=== PATIENT | female | born 1980 | race Caucasian/White ===

== ENCOUNTER 2017-07-23 08:33 | Emergency (ER) | payer OTHER ==
[~2017-07-23] VITALS: Ht 162.6 cm; Wt 132.9 kg
[~2017-07-23 08:33] MED LIST: ALBUAER19 INH; CYM/30 PO; LEVO100T7 PO; MOME220A INH; MTR600X PO; MULT-506 PO; OXYC5TAB PO; PRAZ1CAP28 PO; TOPI25TA99 PO; Vitamin D-3
[2017-07-23 08:54] VITALS: TEMP 36.9; Ht 162.6 cm; Wt 132.9 kg
--- NOTE | 2017-07-23 09:31 | DIAGNOSTIC IMAGING REPORT ---
RIGHT KNEE 3 VIEWS CLINICAL HISTORY: Fall with right knee pain. FINDINGS: AP, crosstable lateral, and sunrise views of the right knee are obtained. No prior studies are available for comparison at the time of dictation. The skeletal structures are well mineralized. No fracture is seen. There is mild narrowing at the patellofemoral articulation. The lateral and medial compartments are preserved. There is no joint effusion. Degenerative beaking is noted in the tibial spine. Mild prepatellar soft tissue swelling is observed. IMPRESSION: Mild prepatellar soft tissue swelling with no radiographic evidence of right knee fracture. Electronically signed by: Asa Jiang M.D. 07/23/2017 9:30 AM Dictated Date/Time: 07/23/2017 9:26 AM
[2017-07-23] MEDS ORDERED: MOME1AER5 INH (09:32)
[2017-07-23] MEDS ORDERED: SYN125 PO (09:32)
[2017-07-23] MEDS ORDERED: CHOL100010 PO (09:32)
[2017-07-23] MEDS ORDERED: TOPI100T20 PO (09:32)
[2017-07-23] MEDS ORDERED: VNTHFA/IN INH (09:32)
[2017-07-23 10:35] VITALS: BP 127/83; PULSE 63; O2SAT 96
[2017-07-23] MEDS ORDERED: FURO-85 PO (12:59)
[2017-07-23] MEDS ORDERED: LORA0.5T12 PO (12:59)
[2017-07-23] MEDS ORDERED: MONT1TAB5 PO (12:59)
[2017-07-23] MEDS ORDERED: DULO60CA44 PO (12:59)
[2017-07-23] MEDS ORDERED: LOSA1TAB PO (12:59)
--- NOTE | 2017-07-23 15:25 | EMERGENCY ROOM VISIT NOTE ---
ED Visit Note First contact with patient: 08:56 CHIEF COMPLAINT: knee pain HISTORY OF PRESENT ILLNESS: This 37-year-old female patient presents to the emergency department after sustaining an injury to the right knee after falling 2 days ago. The patient states that she had a mechanical fall and landed onto her knee. The patient denies any other injuries besides their knee. The patient has had swelling and mild bruising. There is pain over the patella. They rate the pain as sharp and 7/10. The patient states they are able to walk on it. No numbness or tingling. No previous injuries to this knee. No ankle, foot or hip pain. REVIEW OF SYSTEMS: A 6 system review of systems was completed with positives and pertinent negatives listed in the HPI. ALLERGIES: No known allergies MEDICATIONS: See EMR PMH: No pertinent chronic medical disease SOCIAL HISTORY: Lives at home with family PHYSICAL EXAM: Vital Signs: Reviewed Nurse's notes, vital signs stable. GENERAL : White female, no acute distress, but appears in pain, well-developed, well- nourished. MENTAL STATUS: Alert, oriented to person place and time, and cooperative. MUSCULOSKELETAL: The right knee is mildly swollen. There is no ecchymosis. There is no joint effusion present. The patient is tender across the patella. There is no joint line tenderness. The patella does not subluxate. Range of motion is normal. Strength of the quads and hamstrings is 4/5. Jean' s is negative. Mikie's and Anterior Drawer tests are negative. There is no laxity with varus and valgus stressing. The foot and toes are warm and well- perfused. Dorsalis pedis pulse 2+. Sensation to pain and light touch is intact. Capillary refill less than 2 seconds. RIGHT KNEE 3 VIEWS CLINICAL HISTORY: Fall with right knee pain. FINDINGS: AP, crosstable lateral, and sunrise views of the right knee are obtained. No prior studies are available for comparison at the time of dictation. The skeletal structures are well mineralized. No fracture is seen. There is mild narrowing at the patellofemoral articulation. The lateral and medial compartments are preserved. There is no joint effusion. Degenerative beaking is noted in the tibial spine. Mild prepatellar soft tissue swelling is observed. IMPRESSION: Mild prepatellar soft tissue swelling with no radiographic evidence of right knee fracture. EMERGENCY DEPARTMENT COURSE: Physical exam and history were performed. Nursing notes and EMR were reviewed. The patient appears to have suffered injury to her right knee after falling 2 days ago. On exam she does have some tenderness across the front of the patella. X-ray was obtained and does not show evidence of acute fracture or dislocation. Evidently the patient has crutches at home that she will be instructed to use. I will give her an Audie wrap and instructions for conservative care. She is followed with orthopedics with any ongoing or persistent symptoms. She was otherwise invited back to the ER and was pleased with plan of care. Problem List Medical Problems: (1) Asthma Status: Chronic (2) Non-cardiac chest pain Status: Resolved (3) Non-cardiac chest pain Status: Resolved (4) Seasonal allergies Status: Chronic (5) Torticollis Status: Chronic Surgical Problems: (1) History of section Status: Resolved Current/Historical Medications Scheduled Albuterol Hfa (Ventolin Hfa), 2-4 PUFFS INH Q6H Cholecalciferol (Vitamin D), 5,000 UNITS PO DAILY Duloxetine Hcl (Cymbalta), 120 MG PO QAM Furosemide (Lasix), 20 MG PO BID Levothyroxine Sodium (Synthroid), 125 MCG PO DAILY Losartan Potassium (Cozaar), 25 MG PO QAM Mometasone Furoate (Inhalation (Asmanex Hfa), 1 PUFF INH BID Montelukast Sodium (Montelukast Sodium), 1 TAB PO QAM Topiramate (Topamax), 100 MG PO BID Scheduled PRN Lorazepam (Lorazepam), 1-1.5 TAB PO DAILY PRN for Anxiety/Agitation Allergies Coded Allergies: No Known Allergies (Unverified , 02/29/16) Vital Signs Date Time Temp Pulse Resp B/P (MAP) Pulse Ox O2 Delivery O2 Flow Rate FiO2 07/23/17 10:35 63 20 127/83 96 07/23/17 08:54 36.9 74 17 143/100 99 Room Air Departure Information Impression Primary Impression: Injury of right knee Dispostion Home / Self-Care Condition GOOD Referrals Miguel A Estrada MD Forms HOME CARE DOCUMENTATION FORM, IMPORTANT VISIT INFORMATION Patient Instructions My [facility] Additional Instructions You were seen and evaluated today on an emergency basis only. This is not a substitute for, or an effort to provide, complete comprehensive medical care. It is not possible to recognize and treat all injuries or illnesses in a single emergency department visit. For this reason it is recommended that you followup with orthopedics, Dr. Estrada's office, if symptoms persist over the next 1-2 weeks. For baseline pain relief you may alternate ibuprofen and acetaminophen every 4 hours for pain control. Take 600 mg ibuprofen (Advil) and then 4 hours later take 1000 mg acetaminophen (Tylenol). Do not take more than 3000 mg acetaminophen in a single day. Use your crutches from home for the next 4-5 days and advance activity as tolerated. You are welcome to return to the emergency department anytime with new, worsening, or concerning symptoms.
== END 2017-07-23 10:35 | disposition home or self-care (01) ==
LOC: C.EDB 08:35
DX: S89.91XA Unspecified injury of right lower leg, initial encounter (principal); W19.XXXA Unspecified fall, initial encounter; Z79.51 Long term (current) use of inhaled steroids; J45.909 Unspecified asthma, uncomplicated

== ENCOUNTER 2017-08-17 17:55 | Emergency (ER) | payer OTHER ==
[~2017-08-17] VITALS: Ht 162.6 cm; Wt 132.0 kg
[~2017-08-17 17:55] MED LIST changes: -ALBUAER19 INH; +CHOL100010 PO; -CYM/30 PO; +DULO60CA44 PO; +FURO-85 PO; -LEVO100T7 PO; +LORA0.5T12 PO; +LOSA1TAB PO; +MOME1AER5 INH; -MOME220A INH; +MONT1TAB5 PO; -MTR600X PO; -MULT-506 PO; -OXYC5TAB PO; -PRAZ1CAP28 PO; +SYN125 PO; +TOPI100T20 PO; -TOPI25TA99 PO; +VNTHFA/IN INH; -Vitamin D-3
[2017-08-17 18:02] VITALS: Ht 162.6 cm; Wt 132.0 kg
--- NOTE | 2017-08-17 18:20 | EMERGENCY ROOM VISIT NOTE ---
History Report prepared by Nestor: Pedro Spicer Under the Supervision of: Dr. Kylee Pastor D.O. First contact with patient: 18:18 Chief Complaint: NECK PAIN Stated Complaint: STIFF NECK,NECK PAIN,HEADACHE History of Present Illness The patient is a 37 year old female who presents to the Emergency Room with complaints of a persistent headache that started yesterday morning upon waking. She says that she first started with a headache that morning, and then she started having a stiff neck with some neck pain as well. She states that her pain got worse as the day went on, and her head pain comes from behind and comes up over her head. The patient notes that she has been getting dizzy and lightheaded upon standing starting yesterday. The patient states that her pain does not change with position. She says that she did not "sleep funny" the night before the pain came on, and she has never had anything like this before. No vision changes, no tinnitus. The patient notes no history of headaches like this. She denies any nausea, vomiting, shoulder pain, or recent cold symptoms. She states that she feels like she has been getting hot but she did not take her temperature. The patient notes that she has been around a lot of sick people at work. She denies any recent changes in her activity level. The patient adds that she had an MRI of her cervical spine in [place] last month , which was normal but revealed some mild disc bulges. The patient notes that she took Ibuprofen yesterday with no relief. Source of History: patient Onset: Upon waking yesterday morning Position: head Quality: ache Timing: other (persistent) Associated Symptoms: + neck pain (and stiff neck), No nausea, No vomiting Note: Associated symptoms: Dizzy, lightheaded upon standing. Denies shoulder pain or recent cold symptoms. Review of Systems See HPI for pertinent positives & negatives. A total of 10 systems reviewed and were otherwise negative. Past Medical & Surgical Medical Problems: (1) Asthma (2) Menorrhagia (3) Non-cardiac chest pain (4) Non-cardiac chest pain (5) Seasonal allergies (6) Torticollis Surgical Problems: (1) History of section Family History FHx: cancer FHx: diabetes FHx: gallbladder disease FHx: heart disease FHx: hypertension FHx: kidney disease/stones FHx: lung disease Social History Smoking Status: Never Smoker Alcohol Use: none Drug Use: none Housing Status: lives with family Occupation Status: employed Current/Historical Medications Scheduled Albuterol Hfa (Ventolin Hfa), 2 PUFFS INH Q6H Cholecalciferol (Vitamin D), 5,000 UNITS PO DAILY Duloxetine Hcl (Cymbalta), 120 MG PO QAM Furosemide (Lasix), 20 MG PO BID Levothyroxine Sodium (Synthroid), 125 MCG PO DAILY Losartan Potassium (Cozaar), 25 MG PO QAM Mometasone Furoate (Inhalation (Asmanex Hfa), 1 PUFF INH BID Montelukast Sodium (Montelukast Sodium), 1 TAB PO QAM Topiramate (Topamax), 100 MG PO BID Scheduled PRN Ibuprofen (Advil), 400 MG PO Q6 PRN for Pain Lorazepam (Lorazepam), 1-1.5 TAB PO DAILY PRN for Anxiety/Agitation Allergies Coded Allergies: No Known Allergies (Unverified , 02/29/16) Physical Exam Vital Signs Date Time Temp Pulse Resp B/P (MAP) Pulse Ox O2 Delivery O2 Flow Rate FiO2 08/17/17 22:23 61 18 128/70 98 Room Air 08/17/17 21:30 72 20 123/94 99 Room Air 08/17/17 19:58 36.9 75 16 135/95 95 Room Air 08/17/17 18:02 37.5 74 20 136/93 98 Room Air Physical Exam GENERAL: alert, well appearing, well nourished, no distress, non-toxic, obese HEAD: no sinus tenderness to percussion, no mastoid tenderness no percussion EYE EXAM: normal conjunctiva, PERRL and EOM's grossly intact OROPHARYNX: no exudate, no erythema, lips, buccal mucosa, and tongue normal and mucous membranes are moist NECK: supple, no nuchal rigidity, no adenopathy, non-tender LUNGS: Clear to auscultation. Normal chest wall mechanics, no w/r/r HEART: no murmurs, S1 normal and S2 normal ABDOMEN: abdomen soft, non-tender, normo-active bowel sounds, no masses, no rebound or guarding. BACK: Back is symmetrical on inspection and there is no deformity, no midline tenderness, no CVA tenderness. SKIN: no rashes and no bruising UPPER EXTREMITIES: upper extremities are grossly normal. Nml pulses, nml ROM. LOWER EXTREMITIES: No pitting edema. Nml pulses, nml ROM. NEURO EXAM: Normal sensorium, cranial nerves II-XII grossly intact, normal speech, no gross weakness of arms, no gross weakness of legs, no facial droop, no ataxia, nml gait Medical Decision & Procedures ER Provider Diagnostic Interpretation: CT results have been interpreted by the radiologist and reviewed by me. HEAD WITHOUT CONTRAST (CT) CLINICAL HISTORY: 37 years-old Female presenting with atypical headache. TECHNIQUE: Multidetector CT imaging of the head was performed without the use of intravenous contrast. IV contrast: None. A dose lowering technique was used consistent with the principles of ALARA (as low as reasonably achievable). COMPARISON: 07/29/2015. CT DOSE (mGy.cm): The estimated cumulative dose is 638.56 mGycm. FINDINGS: Customer Resolution Specialist topogram: Unremarkable. Ventricles and sulci normal in size. Brain parenchyma normal in appearance with preserved patel-white differentiation. No mass effect or midline shift. No hemorrhage or acute territorial infarct. No extra-axial fluid collection. Paranasal sinuses and mastoid air cells clear. Calvarium intact. IMPRESSION: 1. No acute intracranial pathology. Electronically signed by: Miguel A Reynolds M.D. 08/17/2017 7:29 PM Dictated Date/Time: 08/17/2017 7:26 PM Medications Administered Medications (Trade) Dose Ordered Sig/Nickie Route Start Time Stop Time Status Last Admin Dose Admin Cyclobenzaprine HCl (Flexeril Tab) 10 mg NOW STAT PO 08/17/17 18:40 08/17/17 18:42 DC 08/17/17 18:58 10 MG Ketorolac Tromethamine (Toradol Inj) 60 mg NOW STAT IM 08/17/17 18:40 08/17/17 18:42 DC 08/17/17 18:59 60 MG Acetaminophen/ Butalbital/ Caffeine (Fioricet Tab) 1 tab NOW STAT PO 08/17/17 20:14 08/17/17 20:15 DC 08/17/17 20:31 1 TAB ED Course 1831: The patient was evaluated in room A12B. A complete history and physical exam was performed. 1839: Ordered Toradol Inj 60 mg IM, Flexeril Tab 10 mg PO. 2012: I reevaluated the patient and her headache is slightly better but is still there. 2013: Ordered Fioricet Tab 1 tab PO. 2058: I reevaluated the patient and her pain is better but still there. 2211: Upon reevaluation, the patient is feeling better. I discussed the findings and the treatment plan with the patient. She verbalizes agreement and understanding. She was discharged home. Medical Decision Differential diagnosis: Etiologies such as migraine headache, meningitis, sinusitis, CO exposure, ICH, SAH, infection, tumor, headache, sinus thrombosis, arterial dissection, as well as others were entertained. Pt headache posterior and coming up over head with pain in neck also, no other migrainous symptoms, description not thunderclap and non exertional - doubt SAH. No focal neuro deficits, doubt cva. Most likely tension headache. No fevers or other sx of URI. Did not feel pt presentation was consisted with meningitis and warranted LP - this was discussed with pt and she agreed. Less likely NPH given hx and age. Doubt cvs thrombus or dissection. Medication Reconcilliation Current Medication List: was personally reviewed by me Blood Pressure Screening Patient's blood pressure: Elevated blood pressure Blood pressure disposition: Elevated BP felt to be situational Impression Primary Impression: Headache Scribe Attestation The scribe's documentation has been prepared under my direction and personally reviewed by me in its entirety. I confirm that the note above accurately reflects all work, treatment, procedures, and medical decision making performed by me. Departure Information Dispostion Home / Self-Care Referrals Santi Eubanks M.D. (PCP) Patient Instructions My [facility] Additional Instructions Please rest and drink plenty of fluids to stay well-hydrated. Please follow up with your family doctor regarding the atypical headache you experienced. If you develop recurrent or worsening headache, dizziness, vision changes, fevers, vomiting, numbness or tingling, or you have any other new concerns, please return the emergency room. Problem Qualifiers Primary Impression: Headache Headache type: unspecified Headache chronicity pattern: acute headache Intractability: not intractable Qualified Codes: R51 - Headache
[2017-08-17] MEDS ORDERED: KETOROLAC TROMETHAMINE 60 MG/2 ML VIAL IM STA (18:40)
[2017-08-17] MEDS ORDERED: CYCLOBENZAPRINE HCL 5 MG TAB PO STA (18:40)
[2017-08-17] MEDS ORDERED: IBUP-1050 PO (19:02)
--- NOTE | 2017-08-17 19:31 | DIAGNOSTIC IMAGING REPORT ---
HEAD WITHOUT CONTRAST (CT) CLINICAL HISTORY: 37 years-old Female presenting with atypical headache. TECHNIQUE: Multidetector CT imaging of the head was performed without the use of intravenous contrast. IV contrast: None. A dose lowering technique was used consistent with the principles of ALARA (as low as reasonably achievable). COMPARISON: 07/29/2015. CT DOSE (mGy.cm): The estimated cumulative dose is 638.56 mGycm. FINDINGS: Rfid Systems Engineer topogram: Unremarkable. Ventricles and sulci normal in size. Brain parenchyma normal in appearance with preserved patel-white differentiation. No mass effect or midline shift. No hemorrhage or acute territorial infarct. No extra-axial fluid collection. Paranasal sinuses and mastoid air cells clear. Calvarium intact. IMPRESSION: 1. No acute intracranial pathology. Electronically signed by: Miguel A Reynolds M.D. 08/17/2017 7:29 PM Dictated Date/Time: 08/17/2017 7:26 PM
[2017-08-17 19:58] VITALS: TEMP 36.9
[2017-08-17] MEDS ORDERED: BUTALBITAL/ACETAMIN/CAFFEINE TAB PO STA (20:14)
[2017-08-17 22:23] VITALS: BP 128/70; PULSE 61; O2SAT 98
== END 2017-08-17 22:33 | disposition home or self-care (01) ==
LOC: C.EDB 17:57 → C.EDA 22:33
DX: R51 Headache (principal); J45.909 Unspecified asthma, uncomplicated; Z79.899 Other long term (current) drug therapy; Z80.9 Family history of malignant neoplasm, unspecified; Z83.3 Family history of diabetes mellitus; Z83.79 Family history of other diseases of the digestive system; Z82.49 Family history of ischemic heart disease and other diseases of the circulatory system; Z84.1 Family history of disorders of kidney and ureter

== ENCOUNTER 2018-01-23 17:09 | Emergency (ER) | payer OTHER ==
[~2018-01-23] VITALS: Ht 162.6 cm; Wt 132.1 kg
[~2018-01-23 17:09] MED LIST changes: +IBUP-1050 PO
[2018-01-23 17:16] VITALS: TEMP 37.5; Ht 162.6 cm; Wt 132.1 kg
[2018-01-23] MEDS ORDERED: KETOROLAC TROMETHAMINE 30 MG/ML VIAL IV STA (18:24)
[2018-01-23] MEDS ORDERED: SODIUM CHLORIDE 0.9% 1000ML 1,000 ML IV STA (18:24)
[2018-01-23 18:45] LABS: BASO % 0.3 %; BASO ABS # 0.03 K/uL (0-0.2); EOS % 1.4 %; EOS ABS # 0.15 K/uL (0-0.5); HEMATOCRIT 39.5 % (37-47); HEMOGLOBIN 13.4 g/dL (12.0-16.0); IG# 0.03 K/uL (0.00-0.02); LYMPH % 24.4 %; LYMPH ABS # 2.65 K/uL (1.2-3.4); MEAN CELL VOLUME 90.4 fL (80-100); MEAN CORPUSCULAR HEMOGLOBIN 30.7 pg (25-34); MEAN CORPUSCULAR HGB CONC 33.9 g/dl (32-36); MEAN PLATELET VOLUME 10.6 fL (7.4-10.4); MONO % 8.5 %; MONO ABS # 0.92 K/uL (0.11-0.59); NEUT % 65.1 %; NEUT ABS # 7.06 K/uL (1.4-6.5); PLATELET COUNT 248 K/uL (130-400); RED CELL DISTRIBUTION WIDTH CV 13.2 % (11.5-14.5); RED CELL DISTRIBUTION WIDTH SD 43.8 fL (36.4-46.3); WHITE BLOOD COUNT 10.84 K/uL (4.8-10.8)
--- NOTE | 2018-01-23 18:51 | DIAGNOSTIC IMAGING REPORT ---
CHEST ONE VIEW PORTABLE CLINICAL HISTORY: 37 years-old Female presenting with Chest Pain. TECHNIQUE: Portable upright AP view of the chest was obtained. COMPARISON: 11/22/2015. FINDINGS: Right aortic arch. Normal cardiac silhouette. Lungs and pleural spaces clear. Osseous structures normal. Upper abdomen normal. IMPRESSION: 1. No acute cardiopulmonary disease. 2. Right aortic arch. Electronically signed by: Miguel A Reynolds M.D. 01/23/2018 6:49 PM Dictated Date/Time: 01/23/2018 6:48 PM
[2018-01-23 19:03] LABS: BLOOD UREA NITROGEN 8 mg/dl (7-18); CALCIUM 8.8 mg/dl (8.5-10.1); CARBON DIOXIDE 28 mmol/L (21-32); CREATININE 0.72 mg/dl (0.60-1.20); GLUCOSE 82 mg/dl (70-99); POTASSIUM 3.5 mmol/L (3.5-5.1); SODIUM 139 mmol/L (136-145)
[2018-01-23 19:07] LABS: CKMB < 0.5 ng/ml (0.5-3.6)
[2018-01-23] MEDS ORDERED: BUSP15TA70 PO (19:15)
[2018-01-23] MEDS ORDERED: CHOLCAP5 PO (19:15)
[2018-01-23] MEDS ORDERED: GLC/500 PO (19:15)
[2018-01-23] MEDS ORDERED: TOPI50TA24 PO (19:15)
[2018-01-23] MEDS ORDERED: GI COCKTAIL PO STA (20:30)
[2018-01-23] MEDS ORDERED: ALUMINUM/MAGNESIUM SUSP 30 ML UDC ONE (20:45)
[2018-01-23] MEDS ORDERED: LIDOCAINE HCL 2% VISC SOLN 20 ML UDC ONE (20:45)
[2018-01-23 22:07] VITALS: BP 150/98; PULSE 75; O2SAT 96
--- NOTE | 2018-01-24 00:09 | EMERGENCY ROOM VISIT NOTE ---
History Report prepared by Nestor: Jacquie Rodriguez Under the Supervision of: Dr. Ryan Carter D.O. First contact with patient: 18:15 Chief Complaint: CARDIAC ASSESSMENT Stated Complaint: HEAVY CHEST, DIZZY SPELLS, ELEVATED BP Nursing Triage Summary: Pt states, "My chest is heavy and I have been having dizzy spells. I get real hot and my bp was high." Sx began a couple days ago with dizziness. Other sx began today approx 1300. History of Present Illness The patient is a 37 year old female who presents to the Emergency Room with complaints of constant chest heaviness starting 1300 today. She has never had this before. She currently rates her discomfort as a 6/10 in severity. The pain goes across the top of her chest. She was sitting when it started. She does not identify anything that makes the pain better or worse. She had an episode of dizziness where the room was spinning and she felt hot and clammy. The dizziness has improved. She denies any arm pain, jaw pain, chest pain, or SOB with exertion. She has swelling in her feet which is not new. She denies any history of asthma, COPD, aorta problems, Zahra Danlos, or Marfan's. She does not exercise regularly. Patient denies swelling of calves, recent trips, history of immobilization or recent surgery, prior history of DVT, hemoptysis, history of malignancy, history of smoking, or control/estrogen use. Patient denies diabetes, hyperlipidemia, CAD, history of sudden at a young age, and smoking. She has a history of hypertension. Her sister of kidney failure at 30. Source of History: patient Onset: 1300 Position: chest Symptom Intensity: 6/10 Quality: other (heaviness) Timing: constant Associated Symptoms: No chest pain, No SOB Note: Pt reports dizziness. Review of Systems See HPI for pertinent positives & negatives. A total of 10 systems reviewed and were otherwise negative. Past Medical & Surgical Medical Problems: (1) Asthma (2) Menorrhagia (3) Non-cardiac chest pain (4) Non-cardiac chest pain (5) Seasonal allergies (6) Torticollis Surgical Problems: (1) History of section Family History FHx: cancer FHx: diabetes FHx: gallbladder disease FHx: heart disease FHx: hypertension FHx: kidney disease/stones FHx: lung disease Social History Smoking Status: Never Smoker Alcohol Use: none Drug Use: none Housing Status: lives with family Occupation Status: employed Current/Historical Medications Scheduled Buspirone Hcl (Buspar), 15 MG PO BID Cholecalciferol (Vitamin D3), 5,000 INTER.UNIT PO DAILY Duloxetine Hcl (Cymbalta), 120 MG PO QAM Levothyroxine Sodium (Synthroid), 125 MCG PO DAILY Losartan Potassium (Cozaar), 25 MG PO QAM Metformin Hcl (Glucophage), 500 MG PO BID Topiramate (Topamax), 50 MG PO HS Scheduled PRN Lorazepam (Lorazepam), 0.5-0.75 MG PO DAILY PRN for Anxiety/Agitation Allergies Coded Allergies: No Known Allergies (Unverified , 02/29/16) Physical Exam Vital Signs Date Time Temp Pulse Resp B/P (MAP) Pulse Ox O2 Delivery O2 Flow Rate FiO2 01/23/18 22:07 75 16 150/98 96 01/23/18 22:03 75 16 150/98 96 Room Air 01/23/18 21:02 75 16 154/100 96 Room Air 01/23/18 18:41 83 01/23/18 18:41 84 16 150/109 97 Room Air 01/23/18 17:16 37.5 118 18 158/103 99 Room Air Physical Exam GENERAL: Sitting up in bed, alert, well appearing, well nourished, no distress, non-toxic EYE EXAM: normal conjunctiva. PERRL and EOM's grossly intact. OROPHARYNX: no exudate, no erythema, lips, buccal mucosa, and tongue normal and mucous membranes are moist NECK: supple, no nuchal rigidity, no adenopathy, non-tender LUNGS: Clear to auscultation. Normal chest wall mechanics HEART: no murmurs, S1 normal and S2 normal ABDOMEN: abdomen soft, non-tender, normo-active bowel sounds, no masses, no rebound or guarding. BACK: Back is symmetrical on inspection and there is no deformity, no midline tenderness, no CVA tenderness. SKIN: no rashes and no bruising UPPER EXTREMITIES: upper extremities are grossly normal. LOWER EXTREMITIES: No pitting edema. NEURO EXAM: Normal sensorium, cranial nerves II-XII intact, normal speech, no weakness of arms, no weakness of legs. No drift. Finger to nose intact. Gross sensation intact. Medical Decision & Procedures ER Provider Diagnostic Interpretation: Radiology results as stated below per my review and the radiologist's interpretation: CHEST ONE VIEW PORTABLE CLINICAL HISTORY: 37 years-old Female presenting with Chest Pain. TECHNIQUE: Portable upright AP view of the chest was obtained. COMPARISON: 11/22/2015. FINDINGS: Right aortic arch. Normal cardiac silhouette. Lungs and pleural spaces clear. Osseous structures normal. Upper abdomen normal. IMPRESSION: 1. No acute cardiopulmonary disease. 2. Right aortic arch. Electronically signed by: Miguel A Reynolds M.D. 01/23/2018 6:49 PM Dictated Date/Time: 01/23/2018 6:48 PM Laboratory Results 01/23/18 18:30 Red Blood Count 4.37, Mean Corpuscular Volume 90.4, Mean Corpuscular Hemoglobin 30.7, Mean Corpuscular Hemoglobin Concent 33.9, Mean Platelet Volume 10.6, Neutrophils (%) (Auto) 65.1, Lymphocytes (%) (Auto) 24.4, Monocytes (%) (Auto) 8.5, Eosinophils (%) (Auto) 1.4, Basophils (%) (Auto) 0.3, Neutrophils # (Auto) 7.06, Lymphocytes # (Auto) 2.65, Monocytes # (Auto) 0.92, Eosinophils # (Auto) 0.15, Basophils # (Auto) 0.03 01/23/18 18:30 Test 01/23/18 18:30 01/23/18 20:31 White Blood Count 10.84 K/uL (4.8-10.8) Red Blood Count 4.37 M/uL (4.2-5.4) Hemoglobin 13.4 g/dL (12.0-16.0) Hematocrit 39.5 % (37-47) Mean Corpuscular Volume 90.4 fL (80-100) Mean Corpuscular Hemoglobin 30.7 pg (25-34) Mean Corpuscular Hemoglobin Concent 33.9 g/dl (32-36) Platelet Count 248 K/uL (130-400) Mean Platelet Volume 10.6 fL (7.4-10.4) Neutrophils (%) (Auto) 65.1 % Lymphocytes (%) (Auto) 24.4 % Monocytes (%) (Auto) 8.5 % Eosinophils (%) (Auto) 1.4 % Basophils (%) (Auto) 0.3 % Neutrophils # (Auto) 7.06 K/uL (1.4-6.5) Lymphocytes # (Auto) 2.65 K/uL (1.2-3.4) Monocytes # (Auto) 0.92 K/uL (0.11-0.59) Eosinophils # (Auto) 0.15 K/uL (0-0.5) Basophils # (Auto) 0.03 K/uL (0-0.2) RDW Standard Deviation 43.8 fL (36.4-46.3) RDW Coefficient of Variation 13.2 % (11.5-14.5) Immature Granulocyte % (Auto) 0.3 % Immature Granulocyte # (Auto) 0.03 K/uL (0.00-0.02) D-Dimer 310 ug/L FEU (0-500) Anion Gap 4.0 mmol/L (3-11) Est Creatinine Clear Calc Drug Dose 146.1 ml/min Estimated GFR () 124.9 Estimated GFR (Non- 107.7 BUN/Creatinine Ratio 10.8 (10-20) Calcium Level 8.8 mg/dl (8.5-10.1) Total Creatine Kinase 38 U/L (26-192) Creatine Kinase MB < 0.5 ng/ml (0.5-3.6) Creatine Kinase MB Ratio (0-3.0) Troponin I < 0.015 ng/ml (0-0.045) Laboratory results per my review. Medications Administered Medications (Trade) Dose Ordered Sig/Nickie Route Start Time Stop Time Status Last Admin Dose Admin Sodium Chloride 1,000 ml @ 999 mls/hr Q1H1M STAT IV 01/23/18 18:24 01/23/18 19:24 DC 01/23/18 18:38 999 MLS/HR Ketorolac Tromethamine (Toradol Inj) 30 mg NOW STAT IV 01/23/18 18:24 01/23/18 18:25 DC 01/23/18 18:37 30 MG Miscellaneous Medication (Gi Cocktail) 24 ml NOW STAT PO 01/23/18 20:30 18 20:31 DC 01/23/18 20:48 24 ML Al Hydroxide/Mg Hydroxide (Maalox Susp) 30 ml STK-MED ONCE .ROUTE 01/23/18 20:45 01/23/18 20:46 DC 01/23/18 20:48 30 ML Lidocaine HCl (Viscous Lidocaine 2% Soln) 20 ml STK-MED ONCE .ROUTE 01/23/18 20:45 01/23/18 20:46 DC 01/23/18 20:48 20 ML ECG Per My Interpretation Indication: chest pain Rate (beats per minute): 93 Rhythm: sinus rhythm Findings: other (normal axis, normal intervals, no PVC) ED Course ED COURSE: Vital signs were reviewed and showed hypertension. The patients medical record was reviewed The above diagnostic studies were performed and reviewed. ED treatments and interventions as stated above. 1817: The patient was evaluated in room A2. A complete history and physical examination was performed. 1823: Toradol Inj 30 mg IV, Sodium Chloride 1000 ml @ 999 mls/hr IV. 2026: I reevaluated the patient. Blood was being drawn. 2044: Lidocaine HCl 20 ml PO, Maalox Susp 30 ml PO. 2142: Upon reevaluation, the patient is resting comfortably. I discussed my findings with the patient and she understands and agrees with the treatment plan. Based on the patients age, coexisting illnesses, exam and lab findings the decision to treat as an outpatient was made. The patient remained stable while under my care. The patient appeared well at the time of discharge. Medical Decision Differential diagnoses includes but is not limited to acute coronary syndrome, myocardial infarction, pericarditis, pulmonary embolus, aortic dissection, pneumonia, pneumothorax, musculoskeletal, shingles, esophageal. Patient is a 37-year-old female who presents to ER for pain. This is been present since 1:00. No exacerbating or remitting factors. Only risk factors hypertension. No PE risk factors. CBC along with BMP and troponins 2 were negative. EKG was unremarkable. D-dimer was negative. Chest x-ray unremarkable as well. Patient was given IV fluids, GI cocktail and Toradol. She did feel slightly better. She is updated at bedside. She is discharged as her HEART score made her a low risk and with a negative troponin with chest pain has been present greater than 6 hours. Discussed with Pt concerning signs and symptoms to watch out for. Pt was instructed to follow up with their PCP and discussed with the patient their option to return to the ED at anytime for persistent or worsening symptoms. The appropriate anticipatory guidance and out- patient management, including indications for return to the emergency department , were explained at length to the patient and understood. Medication Reconcilliation Current Medication List: was personally reviewed by me Blood Pressure Screening Patient's blood pressure: Elevated blood pressure Blood pressure disposition: Elevated BP felt to be situational Impression Primary Impression: Chest pain Scribe Attestation The scribe's documentation has been prepared under my direction and personally reviewed by me in its entirety. I confirm that the note above accurately reflects all work, treatment, procedures, and medical decision making performed by me. Departure Information Dispostion Home / Self-Care Referrals Santi Eubanks M.D. (PCP) Forms IMPORTANT VISIT INFORMATION Patient Instructions Chest Pain - [facility], [facility] Additional Instructions Please follow up with your primary care doctor with in the next 24 hours. Any worsening of your symptoms, please return to the ED immediately. This includes any fevers greater than 100.4, worsening pain, chest pain, shortness breath, persistent nausea, vomiting, unable to eat or drink, or any other concerning signs or symptoms from your standpoint. Problem Qualifiers Primary Impression: Chest pain Chest pain type: unspecified Qualified Codes: R07.9 - Chest pain, unspecified
== END 2018-01-23 22:07 | disposition home or self-care (01) ==
LOC: C.EDB 17:10 → C.EDA 22:07
DX: R07.9 Chest pain, unspecified (principal); J45.909 Unspecified asthma, uncomplicated

== ENCOUNTER 2018-02-08 15:35 | Emergency (ER) | payer OTHER ==
[~2018-02-08] VITALS: Ht 162.6 cm; Wt 127.4 kg
[~2018-02-08 15:35] MED LIST changes: +BUSP15TA70 PO; -CHOL100010 PO; +CHOLCAP5 PO; -FURO-85 PO; +GLC/500 PO; -IBUP-1050 PO; -MOME1AER5 INH; -MONT1TAB5 PO; -TOPI100T20 PO; +TOPI50TA24 PO; -VNTHFA/IN INH
[2018-02-08 15:44] VITALS: TEMP 36.8; Ht 162.6 cm; Wt 127.4 kg
[2018-02-08] MEDS ORDERED: ONDANSETRON INJ 2 MG/ML 2 ML VIAL IV STA (15:50)
[2018-02-08] MEDS ORDERED: SODIUM CHLORIDE 0.9% 1000ML 2,000 ML IV STA (15:50)
[2018-02-08] MEDS ORDERED: FENTANYL CITRATE INJ 50 MCG/1 ML 2 ML VIAL IV STA (15:55)
[2018-02-08 16:32] LABS: BASO % 0.2 %; BASO ABS # 0.03 K/uL (0-0.2); EOS % 1.9 %; EOS ABS # 0.24 K/uL (0-0.5); HEMATOCRIT 40.5 % (37-47); HEMOGLOBIN 14.1 g/dL (12.0-16.0); IG# 0.03 K/uL (0.00-0.02); LYMPH % 19.2 %; LYMPH ABS # 2.41 K/uL (1.2-3.4); MEAN CORPUSCULAR HGB CONC 34.8 g/dl (32-36); MEAN PLATELET VOLUME 10.9 fL (7.4-10.4); MONO % 6.5 %; MONO ABS # 0.81 K/uL (0.11-0.59); NEUT ABS # 9.03 K/uL (1.4-6.5); PLATELET COUNT 281 K/uL (130-400); RED CELL DISTRIBUTION WIDTH CV 13.1 % (11.5-14.5); RED CELL DISTRIBUTION WIDTH SD 42.7 fL (36.4-46.3); WHITE BLOOD COUNT 12.55 K/uL (4.8-10.8)
[2018-02-08 17:03] LABS: ALBUMIN 3.3 gm/dl (3.4-5.0); CALCIUM 9.4 mg/dl (8.5-10.1); CREATININE 0.81 mg/dl (0.60-1.20); POTASSIUM 3.7 mmol/L (3.5-5.1)
[2018-02-08 17:06] LABS: TOTAL PROTEIN 8.1 gm/dl (6.4-8.2)
--- NOTE | 2018-02-08 17:16 | DIAGNOSTIC IMAGING REPORT ---
GALLBLADDER-ABD LIMITED HISTORY: 37 years-old Female known gallstone, RUQ pain acute right upper quadrant abdominal pain COMPARISON: None available TECHNIQUE: Multiple real-time sonographic images of the abdominal right upper quadrant were obtained assessing grayscale appearance and color flow FINDINGS: Pancreas is obscured by bowel gas. The liver demonstrates increased echogenicity with poor through transmission suggesting hepatic steatosis. No intrahepatic biliary ductal dilation or focal mass lesion. Shadowing cholelithiasis with obscuration of the posterior gallbladder wall with calculus measuring up to 2.1 cm. No gallbladder wall thickening or pericholecystic fluid. Sonographic Lopez's sign not reported. Common bile duct is normal, 4 mm. Imaged right kidney is unremarkable without hydronephrosis. IMPRESSION: 1. Cholelithiasis without sonographic evidence of acute cholecystitis. 2. No biliary ductal dilation. 3. Increased echogenicity of the liver suggests hepatic steatosis. The above report was generated using voice recognition software. It may contain grammatical, syntax or spelling errors. Electronically signed by: Dillon Justin M.D. 02/08/2018 5:15 PM Dictated Date/Time: 02/08/2018 5:12 PM
[2018-02-08] MEDS ORDERED: TRAZ50TA35 PO (17:23)
[2018-02-08] MEDS ORDERED: FAMOTIDINE 20 MG TAB PO ONE (18:45)
[2018-02-08] MEDS ORDERED: ONDA4TAB10 SL (18:57)
--- NOTE | 2018-02-08 18:57 | EMERGENCY ROOM VISIT NOTE ---
History Report prepared by Nestor: Jacquie Rodriguez Under the Supervision of: Dr. Bhaskar Castillo M.D. First contact with patient: 15:48 Chief Complaint: ABDOMINAL PAIN Stated Complaint: ACUTE GALLBLADDER ATTACK, REFERRED BY DR PETERSON Nursing Triage Summary: Pt c/o chronic gall bladder issues, known stone, scheduled to have gall bladder removed on March 12. Pt had ultrasound at [facility] this week and found the stone approx 1" diameter. Pt also states they found kidney stones, 5mm. Pt reported increased pain, nausea, vomiting today. Contacted PCP and was directed to go to ED. Pt denies trauma. History of Present Illness The patient is a 37 year old female who presents to the Emergency Room with complaints of worsened abdominal pain starting around 1030 today. The patient is scheduled for a cholecystectomy next month. She had an ultrasound last week which found a 1 inch gallstone. She has not been eating normally because of her abdominal pain. Whenever she eats, she seems to vomit or have diarrhea. She had a hamburger today around 1100 which caused her abdominal pain to become worse. She called her surgeon who referred her to the ED. She feels hot and diaphoretic with the pain. She has had diarrhea today since eating the burger. Her last bowel movement was around 1400. She is currently nauseous. She denies any chills, cough, or congestion. She has had a hysterectomy. Source of History: patient Onset: 1030 Position: abdomen Quality: other (gallbladder pain) Timing: worsening Modifying Factors (Worsening): eating Associated Symptoms: + diaphoresis, + nausea, + diarrhea, No chills, No cough Review of Systems See HPI for pertinent positives and negatives. A total of ten systems were reviewed and were otherwise negative. Past Medical & Surgical Medical Problems: (1) Asthma (2) Menorrhagia (3) Non-cardiac chest pain (4) Non-cardiac chest pain (5) Seasonal allergies (6) Torticollis Surgical Problems: (1) History of section Family History FHx: cancer FHx: diabetes FHx: gallbladder disease FHx: heart disease FHx: hypertension FHx: kidney disease/stones FHx: lung disease Social History Smoking Status: Never Smoker Alcohol Use: none Drug Use: none Housing Status: lives with family Occupation Status: employed Current/Historical Medications Scheduled Buspirone Hcl (Buspar), 15 MG PO BID Cholecalciferol (Vitamin D3), 5,000 INTER.UNIT PO DAILY Duloxetine Hcl (Cymbalta), 120 MG PO QAM Levothyroxine Sodium (Synthroid), 125 MCG PO DAILY Losartan Potassium (Cozaar), 25 MG PO QAM Metformin Hcl (Glucophage), 500 MG PO BID Ondasetron Odt (Zofran Odt), 4 MG SL Q6H Trazodone Hcl (Trazodone), 50 MG PO HS Scheduled PRN Lorazepam (Lorazepam), 0.5-0.75 MG PO DAILY PRN for Anxiety/Agitation Allergies Coded Allergies: No Known Allergies (Unverified , 02/08/18) Physical Exam Vital Signs Date Time Temp Pulse Resp B/P (MAP) Pulse Ox O2 Delivery O2 Flow Rate FiO2 02/08/18 19:21 75 18 138/93 100 02/08/18 18:31 81 22 159/121 100 Room Air 02/08/18 17:35 83 20 139/114 100 Room Air 02/08/18 16:37 92 02/08/18 16:23 94 24 165/106 95 Room Air 02/08/18 15:44 36.8 95 18 138/92 94 Room Air Physical Exam GENERAL: Awake, fatigued and uncomfortable-appearing, in no distress HENT: Normocephalic, atraumatic. Dry mucous membranes, otherwise oropharynx unremarkable. EYES: Normal conjunctiva. Sclera non-icteric. NECK: Supple. No nuchal rigidity. FROM. No JVD. RESPIRATORY: Clear to auscultation. CARDIAC: Regular rate, normal rhythm. Extremities warm and well perfused. Pulses equal. ABDOMEN: Soft, non-distended. Mild discomfort in the RUQ, but no discrete tenderness to palpation. Negative Lopez's sign. No rebound or guarding. No masses. RECTAL: Deferred. MUSCULOSKELETAL: Chest examination reveals no tenderness. The back is symmetrical on inspection without obvious abnormality. There is no CVA tenderness to palpation. No joint edema. LOWER EXTREMITIES: Calves are equal size bilaterally and non-tender. No edema. No discoloration. NEURO: Normal sensorium. No sensory or motor deficits noted. SKIN: No rash or jaundice noted. Medical Decision & Procedures ER Provider Diagnostic Interpretation: Radiology results as stated below per my review and radiologist interpretation: GALLBLADDER-ABD LIMITED HISTORY: 37 years-old Female known gallstone, RUQ pain acute right upper quadrant abdominal pain COMPARISON: None available TECHNIQUE: Multiple real-time sonographic images of the abdominal right upper quadrant were obtained assessing grayscale appearance and color flow FINDINGS: Pancreas is obscured by bowel gas. The liver demonstrates increased echogenicity with poor through transmission suggesting hepatic steatosis. No intrahepatic biliary ductal dilation or focal mass lesion. Shadowing cholelithiasis with obscuration of the posterior gallbladder wall with calculus measuring up to 2.1 cm. No gallbladder wall thickening or pericholecystic fluid. Sonographic Lopez's sign not reported. Common bile duct is normal, 4 mm. Imaged right kidney is unremarkable without hydronephrosis. IMPRESSION: 1. Cholelithiasis without sonographic evidence of acute cholecystitis. 2. No biliary ductal dilation. 3. Increased echogenicity of the liver suggests hepatic steatosis. The above report was generated using voice recognition software. It may contain grammatical, syntax or spelling errors. Electronically signed by: Dillon Justin M.D. 02/08/2018 5:15 PM Dictated Date/Time: 02/08/2018 5:12 PM Laboratory Results 02/08/18 16:15 Red Blood Count 4.55, Mean Corpuscular Volume 89.0, Mean Corpuscular Hemoglobin 31.0, Mean Corpuscular Hemoglobin Concent 34.8, Mean Platelet Volume 10.9, Neutrophils (%) (Auto) 72.0, Lymphocytes (%) (Auto) 19.2, Monocytes (%) (Auto) 6.5, Eosinophils (%) (Auto) 1.9, Basophils (%) (Auto) 0.2, Neutrophils # (Auto) 9.03, Lymphocytes # (Auto) 2.41, Monocytes # (Auto) 0.81, Eosinophils # (Auto) 0.24, Basophils # (Auto) 0.03 02/08/18 16:15 Test 02/08/18 16:15 White Blood Count 12.55 K/uL (4.8-10.8) Red Blood Count 4.55 M/uL (4.2-5.4) Hemoglobin 14.1 g/dL (12.0-16.0) Hematocrit 40.5 % (37-47) Mean Corpuscular Volume 89.0 fL (80-100) Mean Corpuscular Hemoglobin 31.0 pg (25-34) Mean Corpuscular Hemoglobin Concent 34.8 g/dl (32-36) Platelet Count 281 K/uL (130-400) Mean Platelet Volume 10.9 fL (7.4-10.4) Neutrophils (%) (Auto) 72.0 % Lymphocytes (%) (Auto) 19.2 % Monocytes (%) (Auto) 6.5 % Eosinophils (%) (Auto) 1.9 % Basophils (%) (Auto) 0.2 % Neutrophils # (Auto) 9.03 K/uL (1.4-6.5) Lymphocytes # (Auto) 2.41 K/uL (1.2-3.4) Monocytes # (Auto) 0.81 K/uL (0.11-0.59) Eosinophils # (Auto) 0.24 K/uL (0-0.5) Basophils # (Auto) 0.03 K/uL (0-0.2) RDW Standard Deviation 42.7 fL (36.4-46.3) RDW Coefficient of Variation 13.1 % (11.5-14.5) Immature Granulocyte % (Auto) 0.2 % Immature Granulocyte # (Auto) 0.03 K/uL (0.00-0.02) Urine Color YELLOW Urine Appearance CLOUDY (CLEAR) Urine pH 5.0 (4.5-7.5) Urine Specific [place] 1.022 (1.000-1.030) Urine Protein NEG (NEG) Urine Glucose (UA) NEG (NEG) Urine Ketones NEG (NEG) Urine Occult Blood NEG (NEG) Urine Nitrite NEG (NEG) Urine Bilirubin NEG (NEG) Urine Urobilinogen NEG (NEG) Urine Leukocyte Esterase NEG (NEG) Urine WBC (Auto) 1-5 /hpf (0-5) Urine RBC (Auto) 0-4 /hpf (0-4) Urine Hyaline Casts (Auto) 1-5 /lpf (0-5) Urine Epithelial Cells (Auto) >30 /lpf (0-5) Urine Bacteria (Auto) NEG (NEG) Urine Test NEG (NEG) Anion Gap 7.0 mmol/L (3-11) Est Creatinine Clear Calc Drug Dose 127.0 ml/min Estimated GFR () 108.3 Estimated GFR (Non- 93.4 BUN/Creatinine Ratio 15.9 (10-20) Calcium Level 9.4 mg/dl (8.5-10.1) Total Bilirubin 0.4 mg/dl (0.2-1) Direct Bilirubin mg/dl (0-0.2) Aspartate Amino Transf (AST/SGOT) 19 U/L (15-37) Alanine Aminotransferase (ALT/SGPT) 18 U/L (12-78) Alkaline Phosphatase 89 U/L (45-117) Total Protein 8.1 gm/dl (6.4-8.2) Albumin 3.3 gm/dl (3.4-5.0) Lipase 95 U/L (73-393) Laboratory results reviewed by me Medications Administered Medications (Trade) Dose Ordered Sig/Nickie Route Start Time Stop Time Status Last Admin Dose Admin Sodium Chloride 2,000 ml @ 999 mls/hr Q2H1M STAT IV 02/08/18 15:50 02/08/18 17:50 DC 02/08/18 16:26 999 MLS/HR Ondansetron HCl (Zofran Inj) 4 mg NOW STAT IV 02/08/18 15:50 02/08/18 15:53 DC 02/08/18 16:25 4 MG Fentanyl Citrate (Fentanyl Inj) 50 mcg NOW STAT IV 02/08/18 15:55 02/08/18 15:56 DC 02/08/18 16:26 50 MCG Famotidine (Pepcid Tab) 20 mg NOW ONCE PO 02/08/18 18:45 02/08/18 18:46 DC 02/08/18 19:14 20 MG Ondansetron HCl (ZOFRAN ODT 4MG Home Pack) 1 homepack UD ONCE PO 02/08/18 19:00 02/08/18 19:01 DC 02/08/18 19:14 1 HOMEPACK ED Course 1549: The patient was evaluated in room C12B. A complete history and physical exam was performed. 1832: I discussed the patient's case with Dr. Saucedo, [facility] general surgery. She states there is no indication for emergent cholecystectomy. 1843: I reevaluated the patient. Discussed results and discharge instructions: She verbalized understanding and agreement. The patient is ready for discharge. Medical Decision I reviewed the patient's past medical history, medications, and the nursing notes as described above. Differential diagnosis: Etiologies such as appendicitis, diverticulitis, PUD, biliary pathology, UTI, pancreatitis, obstruction, mesenteric ischemia, aortic pathology, infections, inflammatory bowel disease, renal colic, as well as others were entertained. The patient is a 37-year-old woman with past medical history of known gallstone who presents to the emergency department with worsening right upper quadrant pain after having a hamburger per HPI. On arrival the patient is uncomfortable but in NAD, AFVSS. She has mild RUQ discomfort without discrete ttp. Negative lopez's sign. WBC 12.5, nonspecific. LFTS wnl without evidence of biliary obstruction. RUQ US negative for obstruction or cholecystitis. Patient feeling improved after IVF, zofran, fentanyl. However, still reporting pain. I explained the patient that her pain should continue to improve given that her exacerbation was likely due to her dietary indiscretion. Moreover, given her w/ u was reassuring without objective evidence to suggest need for emergent surgery , it is appropriate to monitor her symptoms with strict diet and to return if worse. Patient still concerned about her pain, albeit improved, and so case was d/w with Dr. Saucedo, Gen surg on-call, who agrees with outpatient plan. Patient to call her surgeon, Dr. Peterson, on Sunday to arrange for earlier elective cholecystectomy if possible. Patient given pepcid to help if her sx, if possible superimposed gastritis component. Findings and plan for follow-up reviewed with patient. Patient agreeable and d/c'd per discharge instructions. Medication Reconcilliation Current Medication List: was personally reviewed by me Blood Pressure Screening Patient's blood pressure: Elevated blood pressure Blood pressure disposition: Elevated BP felt to be situational Consults Time Called: 1829 Consulting Physician: Dr. Saucedo, [facility] general surgery Returned Call: 1831 I discussed the patient's case with her. She states there is no indication for emergent cholecystectomy. Impression Primary Impression: Cholelithiasis Additional Impression: Recurrent biliary colic Scribe Attestation The scribe's documentation has been prepared under my direction and personally reviewed by me in its entirety. I confirm that the note above accurately reflects all work, treatment, procedures, and medical decision making performed by me. Departure Information Dispostion Home / Self-Care Prescriptions Ondasetron Odt (ZOFRAN ODT) 4 Mg Tab 4 MG SL Q6H for Nausea, #10 TAB Prov: Cross, Bhaskar E., M.D. 02/08/18 Referrals Santi Eubanks M.D. (PCP) Patient Instructions ED Gallstone W Biliary Colic, My [facility] Additional Instructions Please follow up with your surgeon, Dr. Peterson, on Sunday for re-evaluation. Your symptoms are related to your known gallstone, worsened your fatty meal today. Otherwise, your exam, lab results, and ultrasound did not show signs of an emergent condition at this time. Avoid fatty meals. Advance diet slowly as tolerated. Pepcid for GI upset/acid reduction as needed. Zofran as needed for nausea. Drink plenty of fluids to ensure hydration. Return to the emergency department for worsening symptoms as described in the accompanying instructions. Problem Qualifiers
[2018-02-08] MEDS ORDERED: ONDANSETRON HOME PACK 4MG OD TAB PO ONE (19:00)
[2018-02-08 19:21] VITALS: BP 138/93; PULSE 75; O2SAT 100
== END 2018-02-08 19:20 | disposition home or self-care (01) ==
LOC: C.EDB 15:36 → C.EDC 19:20
DX: J45.909 Unspecified asthma, uncomplicated (principal); K80.20 Calculus of gallbladder without cholecystitis without obstruction; K80.50 Calculus of bile duct without cholangitis or cholecystitis without obstruction

== ENCOUNTER → 2018-02-20 | Day surgery (SDC) | payer OTHER ==
[2018-02-13 14:51] VITALS: Ht 162.6 cm; Wt 127.3 kg
[~2018-02-20] VITALS: Ht 162.6 cm; Wt 127.3 kg
[~2018-02-20] MED LIST changes: +ALBUTEROL 0.083% NEBU SOLN 3 ML VIAL INH PRN; +ALBUTEROL HFA INHALER 8.5 GM INH ONE; +ATROPINE SULFATE 0.1 MG/ML 5ML SYR IV PRN; +BACITRACIN OINT 15 GM TUBE ONE; +BUPIVACAINE 0.5 % 5 MG/1 ML MPF 30ML VIAL ONE; +CEFAZOLIN 3000MG IV PUSH 22.5 ML IV SCH; +CEFAZOLIN SOD 3000MG/22.5 ML IV PUSH IV ONE; +DEXAMETHASONE SOD INJ 4 MG/ML VIAL ONE; +EpHEDrine SULFATE INJ 50 MG/ML AMP IV PRN; +EpHEDrine SULFATE INJ 50 MG/ML AMP ONE; +FENTANYL CITRATE INJ 50 MCG/1 ML 2 ML VIAL IV PRN; +FENTANYL CITRATE INJ 50 MCG/1 ML 2 ML VIAL ONE; +FLUMAZENIL 0.1 MG/1 ML 10 ML VIAL IV PRN; +GLYCOPYRROLATE INJ 0.2 MG/ML VIAL ONE; +HYDROmorphone INJ 0.5 MG/0.5 ML SYR IV STA; +HYDROmorphone INJ 2 MG/ML SYR/VIAL ONE; +LABETALOL HCL IV 5 MG/ML 20ML IV PRN; +LACTATED RINGER'S 1000ML 1,000 ML IV SCH; +LIDOCAINE HCL 1% 20 ML VIAL ONE; +LIDOCAINE HCL 2% 2 ML VIAL (20MG/ML) ONE; +MIDAZOLAM HCL 1 MG/ML 2ML VIAL ONE; +MoRPHine SULFATE 4 MG/ML 1 ML CARP\\VIAL IV PRN; +NALOXONE HCL 0.4 MG/1 ML VIAL/CARP IV PRN; +NEOSTIGMINE METHYLSULFATE 5 MG/5 ML SYR ONE; +ONDA4TAB46 SL; +ONDANSETRON INJ 2 MG/ML 2 ML VIAL IV PRN; +ONDANSETRON INJ 2 MG/ML 2 ML VIAL ONE; +OXYC-57 PO; +OXYCODONE/ACETAMINOPHEN 5-325 TAB PO PRN; +PHENYLEPHRINE HCL INJ 10 MG/ML VIAL ONE; +PROMETHAZINE HCL INJ 12.5 MG in SODIUM CHLORIDE 0.9% 50ML 50 ML IV PRN; +PROPOFOL IV EMULSION 10 MG/ML 20 ML VIAL ONE; +ROCURONIUM BROMIDE 10 MG/ML 5 ML VIAL ONE; +SODIUM CHLORIDE 0.9% 1000ML 1,000 ML IV SCH; +SUCCINYLCHOLINE CHLORIDE 20 MG/ML 10 ML VIAL IV ONE; -TOPI50TA24 PO; +TRAZ50TA35 PO
[2018-02-20 05:31] VITALS: BP 122/89; PULSE 75; TEMP 36.9; O2SAT 100
--- NOTE | 2018-02-20 06:59 | History & Physical Bridge Note ---
H&P Re-Evaluation Bridge Note: I have examined the patient, reviewed the History & Physical and in the interval since the performance of the History & Physical I have noted the following changes of clinical significance: No changes noted
--- NOTE | 2018-02-20 09:00 | [facility] Post Operative Brief Note ---
Immediate Operative Summary Operative Date February 20, 2018. Pre-Operative Diagnosis Cholecystitis with Cholelithiasis Post-Operative Diagnosis Same as preop Procedure(s) Performed Laparopscopic Cholecystectomy Surgeon Dr. Peterson Wedger And Gluer Surgeon(s) None Estimated Blood Loss 10 ml Findings Consistent with Post-Op Diagnosis Fluids (cc crystalloids) 1000ML Specimens A. Gall Bladder and Contents Drains None Anesthesia Type General Complication(s) none Disposition Accompanied Pt To Recover: yes Disposition: Recovery Room / PACU
--- NOTE | 2018-02-20 09:12 | Discharge Instructions ---
Discharge Instructions Date of Service February 20, 2018. Visit Reason for Visit: Right Upper Quadrant Abdominal Pain Discharge Discharge Diagnosis / Problem: S/P laparoscopic cholecystectomy Discharge Goals Goal(s): Decrease discomfort, Improve function Activity Recommendations Activity Limitations: per Instructions/Follow-up section Lifting Limitations: no more than 25 pounds Exercise/Sports Limitations: rest today May Resume Sexual Activity: after two weeks Shower/Bathe: may shower/bathe in 3 days Driving or Machine Use: resume 3 days after discharge Anesthesia . Post Anesthesia Instructions: If you have had General Anesthesia or IV Sedation: * Do not drive today. * Resume driving when surgeon permits. * Do not make important decisions or sign legal documents today. * Call surgeon for: 1. Temperature elevations greater than 101 degrees F. 2. Uncontrollable pain. 3. Excessive bleeding. 4. Persistent nausea and vomiting. 5. Medication intolerance (nausea, vomiting or rash). * For nausea and vomiting use only clear liquids such as: tea, soda, bouillon until nausea subsides, then gradually increase diet as tolerated. * If you have any concerns or questions, call your surgeon's office. If physician is unavailable and it is an emergency, call 911 or go to the nearest emergency room. . Instructions / Follow-Up Instructions / Follow-Up keep the dresssing on for 4 days, she can take a shower on 02/24/2018, no driving while taking pain medicine, no heavy lifting > 20 LBS for 4 weeks, follow up Dr. Peterson in 2 weeks, Diet Recommendations Recommended Home Diet: resume previous diet Procedures Procedures Performed: Laparopscopic Cholecystectomy Pending Studies Studies pending at discharge: no Medical Emergencies . Who to Call and When: Medical Emergencies: If at any time you feel your situation is an emergency, please call 911 immediately. . Non-Emergent Contact Non-Emergency issues call your: Surgeon Call Non-Emergent contact if: you have a fever, temperature is above 100.5, your pain is not controlled, your pain is worsening, wound has increased drainage, wound has increased redness . . "Provider Documentation" section prepared by Irasema Peterson. . [place] Drug Monitoring Program Search Results: no issues identified
[2018-02-20 09:25] VITALS: PULSE 60; O2SAT 100
--- NOTE | 2018-02-20 10:12 | Anesthesiology Progress Note ---
Anesthesia Post Op Note Date & Time February 20, 2018 at 10:12 Vital Signs Pain Intensity: 6 Vital Signs Past 12 Hours Date Time Temp Pulse Resp B/P (MAP) Pulse Ox O2 Delivery O2 Flow Rate FiO2 02/20/18 10:00 78 20 123/89 94 Room Air 02/20/18 09:50 76 20 144/87 95 Room Air 02/20/18 09:40 81 20 168/92 95 Room Air 02/20/18 09:30 78 20 146/91 100 Oxymask 8 02/20/18 09:25 60 14 100 Mask 15.0 02/20/18 09:20 75 16 153/94 100 Oxymask 10 02/20/18 09:11 36.5 75 16 138/84 99 Oxymask 15 02/20/18 05:31 36.9 75 16 122/89 (100) 100 Room Air Notes Mental Status: alert / awake / arousable, participated in evaluation Pt Amnestic to Procedure: Yes Nausea / Vomiting: adequately controlled Pain: adequately controlled Airway Patency, RR, SpO2: stable & adequate BP & HR: stable & adequate Hydration State: stable & adequate Anesthetic Complications: no major complications apparent
[2018-02-20 10:30] VITALS: BP 132/96; PULSE 75; TEMP 36.8; O2SAT 96
[2018-02-20 11:00] VITALS: BP 132/96; PULSE 77; O2SAT 93
[2018-02-20 11:34] VITALS: BP 126/101; PULSE 100; TEMP 36.9; O2SAT 97
[2018-02-20 12:15] VITALS: BP 115/90; PULSE 100; TEMP 36.8; O2SAT 96
--- NOTE | 2018-02-20 13:09 | OPERATIVE REPORT ---
DATE OF OPERATION: 02/20/2018 PREOPERATIVE DIAGNOSES: Acute cholecystitis, cholelithiasis. POSTOPERATIVE DIAGNOSES: Same. PROCEDURE: Laparoscopic cholecystectomy. SURGEON: Irasema Peterson MD ANESTHESIA: General. ESTIMATED BLOOD LOSS: About 10 mL. FINDINGS: Acute cholecystitis with cholelithiasis. COMPLICATIONS: None. INDICATIONS FOR THE PROCEDURE: This is a 37-year-old female who presented with right upper quadrant pain. The patient had an ultrasound showing acute cholecystitis with cholelithiasis. The patient was required to do laparoscopic cholecystectomy, possible open, possible cholangiogram. I did talk to the patient about the benefits, risks, alternates to the procedure. I indicated the risks may include but not limited to bleeding, infection, injury to common bile duct, injury to bowel, may need ERCP. The patient understood. She signed informed consent, and I answered all questions. DETAILS OF PROCEDURE: We brought in the patient to the OR, put the patient in the supine position. The patient received SCD on bilateral legs to prevent DVT. Also, the patient received 3 g Ancef IV for prophylactic antibiotic. The patient received general anesthesia without difficulty. The abdomen was prepped and draped in routine sterile fashion. After timeout, I injected the local anesthesia by using 1% lidocaine mixed with 0.5% Marcaine just above the umbilicus, and then I made a small incision just above umbilicus, opened fascia, opened peritoneum under direct vision, put a Shawn trocar and connected to CO2 to create pneumoperitoneum, flow rate 6 L/min, pressure not more than 14 mmHg. Once we got a nice pneumoperitoneum, we put the camera in, looked around the abdomen, showed normal finding of the stomach, small bowel, large bowel, liver; however, there are some omental covers in gallbladder suggesting cholecystitis. We then put another three 5 mm trocars on the right upper quadrant. Once all the trocars were in, I put a grasper in, held the base of gallbladder, put a direction to diaphragm, put another grasper and held the pouch of gallbladder, put latter to explore triangle of [place]. The cystic duct was identified and mobilized, then I put two 5 mm metal clips on the proximal cystic duct and on the distal cystic duct, and then using scissor, transected the cystic duct, rechecked, no active bleeding, no bile leak. Then the cystic artery was identified and mobilized, then I put two 5 mm metal clips on the proximal cystic artery and on the distal cystic artery, and with the use of scissor, transected the cystic artery, rechecked, no active bleeding. Then using Bovie, took down gallbladder from liver bed, rechecked, no active bleeding from liver bed and no bile leak from liver bed. Then we removed gallbladder through the catch bag, then we reinserted Shawn trocar in, connected to CO2 to create pneumoperitoneum. Again, looked around the abdomen, showing no active bleeding, no bile leak from liver bed. Then we removed all trocars under direct vision, no active bleeding from the trocar sites. Pneumoperitoneum was released, and we closed the umbilical incision fascial layer by using #1 Vicryl [id number] x2, closed subcutaneous layer by using 2-0 Vicryl interrupted, closed skin by using 4-0 Vicryl continuous running, closed another three 5 mm trocar sites only by using 4-0 Vicryl. We put the dressing on. The patient tolerated the procedure well. All instrument, needle, and sponge counts correct x2 at the end of case. The specimen was sent to pathology. The patient was transferred to recovery room in stable condition. After the procedure, I did talk to the patient's family member about OR finding and procedure. We did also give them the postop care instruction. They understood. I attest to the content of the Intraoperative Record and any orders documented therein. Any exceptions are noted below. STEPHEN
== END | disposition home or self-care (01) ==
LOC: C.ACU 05:05
PROVIDERS: ATTEND Surgery
DX: K80.10 Calculus of gallbladder with chronic cholecystitis without obstruction (principal); J45.909 Unspecified asthma, uncomplicated; I10 Essential (primary) hypertension; E66.01 Morbid (severe) obesity due to excess calories; E88.81 Metabolic syndrome and other insulin resistance; E03.9 Hypothyroidism, unspecified; Z87.442 Personal history of urinary calculi; Z68.43 Body mass index [BMI] 50.0-59.9, adult; Z90.710 Acquired absence of both cervix and uterus

== ENCOUNTER 2018-05-17 16:37 | Emergency (ER) | payer OTHER ==
[~2018-05-17] VITALS: Ht 162.6 cm; Wt 128.5 kg
[~2018-05-17 16:37] MED LIST changes: -ALBUTEROL 0.083% NEBU SOLN 3 ML VIAL INH PRN; -ALBUTEROL HFA INHALER 8.5 GM INH ONE; +ANT25 PO; +ASPI-461 PO; -ATROPINE SULFATE 0.1 MG/ML 5ML SYR IV PRN; -BACITRACIN OINT 15 GM TUBE ONE; -BUPIVACAINE 0.5 % 5 MG/1 ML MPF 30ML VIAL ONE; -BUSP15TA70 PO; -CEFAZOLIN 3000MG IV PUSH 22.5 ML IV SCH; -CEFAZOLIN SOD 3000MG/22.5 ML IV PUSH IV ONE; -CHOLCAP5 PO; -DEXAMETHASONE SOD INJ 4 MG/ML VIAL ONE; -EpHEDrine SULFATE INJ 50 MG/ML AMP IV PRN; -EpHEDrine SULFATE INJ 50 MG/ML AMP ONE; -FENTANYL CITRATE INJ 50 MCG/1 ML 2 ML VIAL IV PRN; -FENTANYL CITRATE INJ 50 MCG/1 ML 2 ML VIAL ONE; -FLUMAZENIL 0.1 MG/1 ML 10 ML VIAL IV PRN; -GLC/500 PO; -GLYCOPYRROLATE INJ 0.2 MG/ML VIAL ONE; -HYDROmorphone INJ 0.5 MG/0.5 ML SYR IV STA; -HYDROmorphone INJ 2 MG/ML SYR/VIAL ONE; -LABETALOL HCL IV 5 MG/ML 20ML IV PRN; -LACTATED RINGER'S 1000ML 1,000 ML IV SCH; -LIDOCAINE HCL 1% 20 ML VIAL ONE; -LIDOCAINE HCL 2% 2 ML VIAL (20MG/ML) ONE; +LPT40 PO; -MIDAZOLAM HCL 1 MG/ML 2ML VIAL ONE; -MoRPHine SULFATE 4 MG/ML 1 ML CARP\\VIAL IV PRN; -NALOXONE HCL 0.4 MG/1 ML VIAL/CARP IV PRN; -NEOSTIGMINE METHYLSULFATE 5 MG/5 ML SYR ONE; -ONDA4TAB46 SL; -ONDANSETRON INJ 2 MG/ML 2 ML VIAL IV PRN; -ONDANSETRON INJ 2 MG/ML 2 ML VIAL ONE; -OXYC-57 PO; -OXYCODONE/ACETAMINOPHEN 5-325 TAB PO PRN; -PHENYLEPHRINE HCL INJ 10 MG/ML VIAL ONE; +PLV75 PO; -PROMETHAZINE HCL INJ 12.5 MG in SODIUM CHLORIDE 0.9% 50ML 50 ML IV PRN; -PROPOFOL IV EMULSION 10 MG/ML 20 ML VIAL ONE; -ROCURONIUM BROMIDE 10 MG/ML 5 ML VIAL ONE; -SODIUM CHLORIDE 0.9% 1000ML 1,000 ML IV SCH; -SUCCINYLCHOLINE CHLORIDE 20 MG/ML 10 ML VIAL IV ONE; -TRAZ50TA35 PO
[2018-05-17 16:48] VITALS: TEMP 37; Ht 162.6 cm; Wt 128.5 kg
[2018-05-17] MEDS ORDERED: TRAZ50TA35 PO (17:23)
--- NOTE | 2018-05-17 18:18 | EMERGENCY ROOM VISIT NOTE ---
History Report prepared by Nestor: Ale Reyes Under the Supervision of: Dr. Geo Briones M.D. First contact with patient: 17:59 Chief Complaint: CARDIAC ASSESSMENT Stated Complaint: CHEST PAIN AND DISCOMFORT, EXCESSIVE SWEATING, Nursing Triage Summary: Patient states over the last few days she noticed that her heart heats really fast, then she gets dizzy and sweaty. Patient called Dr Hairston and she was referred to ER. Patient c/o mild chest discomfort now but no dizziness . History of Present Illness The patient is a 38 year old female who presents to the Emergency Room with complaints of worsening of chest pain that onset a few days ago. She notes that her chest last hurt today at 1500. She notes that standing still alleviates her pain. The patient complains of tachycardia, heart pounding, diaphoresis, dizziness, shortness of breath, and weakness. The patient denies abdominal pain. She notes that she had a TIA at the end of March. The patient states that she takes baby aspirin and Plavix. She notes that she has never had a stress test, but is scheduled to have one on 05/23/2018. Source of History: patient Onset: A few days ago Position: chest Timing: worsening Modifying Factors (Relieving): other (standing still) Associated Symptoms: + diaphoresis, + SOB, + weakness, No chest pain, No abdominal pain Note: The patient complains of tachycardia, her heart pounding, dizziness, Review of Systems See HPI for pertinent positives & negatives. A total of 10 systems reviewed and were otherwise negative. Past Medical & Surgical Medical Problems: (1) Asthma (2) Dizziness (3) Menorrhagia (4) Non-cardiac chest pain (5) Non-cardiac chest pain (6) Right upper extremity numbness (7) Seasonal allergies (8) Torticollis Surgical Problems: (1) H/O: hysterectomy (2) History of section Family History FHx: cancer FHx: diabetes FHx: gallbladder disease FHx: heart disease FHx: hypertension FHx: kidney disease/stones FHx: lung disease Social History Smoking Status: Never Smoker Alcohol Use: none Drug Use: none Housing Status: lives with family Occupation Status: employed Current/Historical Medications Scheduled Aspirin (Aspirin Ec), 81 MG PO DAILY Atorvastatin (Lipitor), 40 MG PO DAILY Buspirone Hcl (Buspar), 15 MG PO BID Cholecalciferol (Vitamin D3), 1,000 INTER.UNIT PO DAILY Clopidogrel (Plavix), 75 MG PO QAM Duloxetine Hcl (Cymbalta), 120 MG PO QAM Levothyroxine Sodium (Synthroid), 125 MCG PO QAM Losartan Potassium (Cozaar), 25 MG PO QAM Metformin Hcl (Glucophage), 500 MG PO BID Trazodone Hcl (Trazodone), 50 MG PO HS Scheduled PRN Lorazepam (Lorazepam), 0.5-0.75 MG PO DAILY PRN for Anxiety/Agitation Meclizine Hcl (Meclizine Hcl), 12.5 MG PO Q6H PRN for Dizziness or Vertigo Allergies Coded Allergies: No Known Allergies (Unverified , 04/13/18) Physical Exam Vital Signs Date Time Temp Pulse Resp B/P (MAP) Pulse Ox O2 Delivery O2 Flow Rate FiO2 05/17/18 20:39 82 20 121/83 96 05/17/18 18:35 95 05/17/18 18:34 89 20 124/95 100 Room Air 05/17/18 18:08 81 05/17/18 16:50 Room Air 05/17/18 16:48 37.0 89 18 135/99 99 Room Air Physical Exam GENERAL: Awake, alert, well-appearing, in no acute distress HENT: Normocephalic, atraumatic. Oropharynx unremarkable. EYES: Normal conjunctiva. Sclera non-icteric. NECK: Supple. No nuchal rigidity. FROM. No JVD. RESPIRATORY: Clear to auscultation. CARDIAC: Regular rate, normal rhythm. Extremities warm and well perfused. Pulses equal. ABDOMEN: Soft, non-distended. No tenderness to palpation. No rebound or guarding. No masses. RECTAL: Deferred. MUSCULOSKELETAL: Chest examination reveals no tenderness. The back is symmetrical on inspection without obvious abnormality. There is no CVA tenderness to palpation. No joint edema. LOWER EXTREMITIES: Calves are equal size bilaterally and non-tender. No edema. No discoloration. NEURO: Normal sensorium. No sensory or motor deficits noted. SKIN: No rash or jaundice noted. Medical Decision & Procedures ER Provider Diagnostic Interpretation: Radiology results as stated below per my review and radiologist interpretation: SINGLE VIEW CHEST CLINICAL HISTORY: Atypical chest pain. FINDINGS: An AP, portable, upright chest radiograph is compared to study dated 04/13/2018 and correlated with chest CT dated 03/28/2018. The cardiomediastinal silhouette is unremarkable. A right-sided aortic arch is incidentally noted. The lungs and pleural spaces are clear. No pneumothorax is seen. The bony thorax is grossly intact. IMPRESSION: No active disease in the chest. Electronically signed by: Asa Jiang M.D. 05/17/2018 6:58 PM Dictated Date/Time: 05/17/2018 6:58 PM Laboratory Results 05/17/18 18:55 Red Blood Count 4.41, Mean Corpuscular Volume 91.2, Mean Corpuscular Hemoglobin 31.5, Mean Corpuscular Hemoglobin Concent 34.6, Mean Platelet Volume 11.2, Neutrophils (%) (Auto) 64.5, Lymphocytes (%) (Auto) 25.4, Monocytes (%) (Auto) 7.5, Eosinophils (%) (Auto) 1.8, Basophils (%) (Auto) 0.4, Neutrophils # (Auto) 7.34, Lymphocytes # (Auto) 2.89, Monocytes # (Auto) 0.85, Eosinophils # (Auto) 0.20, Basophils # (Auto) 0.05 05/17/18 18:55 Test 05/17/18 18:55 05/17/18 18:59 05/17/18 19:00 White Blood Count 11.37 K/uL (4.8-10.8) Red Blood Count 4.41 M/uL (4.2-5.4) Hemoglobin 13.9 g/dL (12.0-16.0) Hematocrit 40.2 % (37-47) Mean Corpuscular Volume 91.2 fL (80-100) Mean Corpuscular Hemoglobin 31.5 pg (25-34) Mean Corpuscular Hemoglobin Concent 34.6 g/dl (32-36) Platelet Count 281 K/uL (130-400) Mean Platelet Volume 11.2 fL (7.4-10.4) Neutrophils (%) (Auto) 64.5 % Lymphocytes (%) (Auto) 25.4 % Monocytes (%) (Auto) 7.5 % Eosinophils (%) (Auto) 1.8 % Basophils (%) (Auto) 0.4 % Neutrophils # (Auto) 7.34 K/uL (1.4-6.5) Lymphocytes # (Auto) 2.89 K/uL (1.2-3.4) Monocytes # (Auto) 0.85 K/uL (0.11-0.59) Eosinophils # (Auto) 0.20 K/uL (0-0.5) Basophils # (Auto) 0.05 K/uL (0-0.2) RDW Standard Deviation 44.1 fL (36.4-46.3) RDW Coefficient of Variation 13.3 % (11.5-14.5) Immature Granulocyte % (Auto) 0.4 % Immature Granulocyte # (Auto) 0.04 K/uL (0.00-0.02) Est Creatinine Clear Calc Drug Dose 116.4 ml/min Estimated GFR () 97.3 Estimated GFR (Non- 83.9 BUN/Creatinine Ratio 10.4 (10-20) Calcium Level 8.6 mg/dl (8.5-10.1) Total Bilirubin 0.6 mg/dl (0.2-1) Direct Bilirubin 0.1 mg/dl (0-0.2) Aspartate Amino Transf (AST/SGOT) 42 U/L (15-37) Alanine Aminotransferase (ALT/SGPT) 59 U/L (12-78) Alkaline Phosphatase 109 U/L (45-117) Total Creatine Kinase 53 U/L (26-192) Creatine Kinase MB < 1.0 ng/ml (0.5-3.6) Creatine Kinase MB Ratio (0-3.0) Troponin I < 0.015 ng/ml (0-0.045) Total Protein 7.9 gm/dl (6.4-8.2) Albumin 3.5 gm/dl (3.4-5.0) Lipase 157 U/L (73-393) Bedside D-Dimer 202 ng/mlFEU (0-450) Bedside Hemoglobin 13.9 g/dl (12.0-16.0) Bedside Hematocrit 41 % (37-47) Bedside Sodium 141 mEq/L (135-144) Bedside Potassium 3.6 mEq/L (3.3-5.0) Bedside Chloride 103 mEq/L (101-112) Bedside Total CO2 25 mEq/l (24-31) Anion Gap 18.0 mmol/L (16-25) Bedside Blood Urea Nitrogen 9 mg/dl (7-18) Bedside Creatinine 0.7 mg/dl (0.6-1.3) Bedside Glucose (other) 81 mg/dl (70-99) Bedside Ionized Calcium (Audrey) 1.07 mmol/l (1.12-1.32) Labs reviewed by ED physician. ECG Per My Interpretation Indication: chest pain Rate (beats per minute): 93 Rhythm: normal sinus Findings: other (Normal EKG, no ST segment elevation or depression. ) Change: no significant change Change: Unchanged from 04/13/18. ED Course 180: Past medical records reviewed. The patient was evaluated in room C5. A complete history and physical examination was performed. 2019: Upon reexamination the patient is resting comfortably. I discussed results and treatment plan with the patient. She verbalizes agreement and understanding. The patient is ready for discharge. Medical Decision Differential diagnosis: Etiologies such as cardiac ischemia, aortic dissection, pulmonary embolism, pneumonia, pneumothorax, musculoskeletal, infections, pericarditis, myocarditis , esophageal rupture, gastrointestinal, as well as others were entertained. This is a 38-year-old female who presents emergency department complaining of shortness of breath. Patient appears to describe what sounds like a vasovagal reaction where she describes dizziness and then sweating. Regardless these episodes have been ongoing since March. She also has a history of possible subclavian steal syndrome. Patient appears well perfused. 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 Cardiac and enzymes were obtained along with electrolytes. The patient is on Plavix and aspirin. I will note that the patient was already on a Holter monitor earlier this summer. I feel she is well enough to be discharged home for follow-up with her technical information specialist. Patient was in agreement with the treatment plan. Medication Reconcilliation Current Medication List: was personally reviewed by me Blood Pressure Screening Patient's blood pressure: Normal blood pressure Impression Primary Impression: Palpitations Scribe Attestation The scribe's documentation has been prepared under my direction and personally reviewed by me in its entirety. I confirm that the note above accurately reflects all work, treatment, procedures, and medical decision making performed by me. Departure Information Dispostion Home / Self-Care Referrals Santi Eubanks M.D. (PCP) Forms IMPORTANT VISIT INFORMATION Patient Instructions My [facility] Additional Instructions Follow up with Dr Hairston's office No strenuous activity until follow up You have been examined and treated today on an emergency basis only. This is not a substitute for, or an effort to provide, complete comprehensive medical care. It is impossible to recognize and treat all injuries or illnesses in a single emergency department visit. It is therefore important that you follow up closely with Dr Flores. Call as soon as possible for an appointment.
[2018-05-17] MEDS ORDERED: ATOR-24 PO (18:29)
[2018-05-17] MEDS ORDERED: CLOP1TAB15 PO (18:29)
[2018-05-17] MEDS ORDERED: ASPI81TA28 PO (18:29)
[2018-05-17] MEDS ORDERED: MECL1TAB42 PO (18:29)
[2018-05-17 18:35] VITALS: O2SAT 95
--- NOTE | 2018-05-17 19:00 | DIAGNOSTIC IMAGING REPORT ---
SINGLE VIEW CHEST CLINICAL HISTORY: Atypical chest pain. FINDINGS: An AP, portable, upright chest radiograph is compared to study dated 04/13/2018 and correlated with chest CT dated 03/28/2018. The cardiomediastinal silhouette is unremarkable. A right-sided aortic arch is incidentally noted. The lungs and pleural spaces are clear. No pneumothorax is seen. The bony thorax is grossly intact. IMPRESSION: No active disease in the chest. Electronically signed by: Asa Jiang M.D. 05/17/2018 6:58 PM Dictated Date/Time: 05/17/2018 6:58 PM
[2018-05-17 19:08] LABS: BASO % 0.4 %; BASO ABS # 0.05 K/uL (0-0.2); EOS % 1.8 %; HEMATOCRIT 40.2 % (37-47); HEMOGLOBIN 13.9 g/dL (12.0-16.0); IG# 0.04 K/uL (0.00-0.02); LYMPH % 25.4 %; LYMPH ABS # 2.89 K/uL (1.2-3.4); MEAN CELL VOLUME 91.2 fL (80-100); MEAN CORPUSCULAR HEMOGLOBIN 31.5 pg (25-34); MEAN CORPUSCULAR HGB CONC 34.6 g/dl (32-36); MEAN PLATELET VOLUME 11.2 fL (7.4-10.4); MONO % 7.5 %; MONO ABS # 0.85 K/uL (0.11-0.59); NEUT % 64.5 %; NEUT ABS # 7.34 K/uL (1.4-6.5); PLATELET COUNT 281 K/uL (130-400); RED CELL DISTRIBUTION WIDTH CV 13.3 % (11.5-14.5); RED CELL DISTRIBUTION WIDTH SD 44.1 fL (36.4-46.3); WHITE BLOOD COUNT 11.37 K/uL (4.8-10.8)
[2018-05-17 19:08] LABS: ISTAT CREATININE 0.7 mg/dl (0.6-1.3); ISTAT IONIZED CALCIUM 1.07 mmol/l (1.12-1.32); ISTAT POTASSIUM 3.6 mEq/L (3.3-5.0)
[2018-05-17] MEDS ORDERED: GLC/500 PO (19:15)
[2018-05-17] MEDS ORDERED: BUSP15TA70 PO (19:15)
[2018-05-17 19:32] LABS: ALBUMIN 3.5 gm/dl (3.4-5.0); ALKALINE PHOSPHATASE 109 U/L (45-117); ALT/SGPT 59 U/L (12-78); AST/SGOT 42 U/L (15-37); BLOOD UREA NITROGEN 9 mg/dl (7-18); CALCIUM 8.6 mg/dl (8.5-10.1); CARBON DIOXIDE 24 mmol/L (21-32); CKMB < 1.0 ng/ml (0.5-3.6); CREATININE 0.88 mg/dl (0.60-1.20); GLUCOSE 75 mg/dl (70-99); LIPASE 157 U/L (73-393); POTASSIUM 3.6 mmol/L (3.5-5.1); SODIUM 136 mmol/L (136-145); TOTAL PROTEIN 7.9 gm/dl (6.4-8.2)
[2018-05-17 20:39] VITALS: BP 121/83; PULSE 82; O2SAT 96
[2018-05-17] MEDS ORDERED: CHOL1000 PO (23:36)
== END 2018-05-17 20:40 | disposition home or self-care (01) ==
LOC: C.EDB 16:40 → C.EDC 20:40
DX: R00.2 Palpitations (principal); R00.0 Tachycardia, unspecified; R61 Generalized hyperhidrosis; R42 Dizziness and giddiness; R06.02 Shortness of breath; R53.1 Weakness; J45.909 Unspecified asthma, uncomplicated; Z86.73 Personal history of transient ischemic attack (TIA), and cerebral infarction without residual deficits; Z79.82 Long term (current) use of aspirin; Z79.899 Other long term (current) drug therapy; Z79.84 Long term (current) use of oral hypoglycemic drugs; Z82.49 Family history of ischemic heart disease and other diseases of the circulatory system